=== PATIENT | male | born 1955 | race Caucasian/White ===

== ENCOUNTER → 2016-10-16 | Outpatient (CLI) | payer MEDICARE, OTHER | LOC: GMAM 10:35 | PROVIDERS: ATTEND Family Medicine | DX: E29.1 Testicular hypofunction (principal) ==

== ENCOUNTER → 2017-05-04 | Outpatient (CLI) | payer MEDICARE, OTHER | LOC: GMAM 10:36 | PROVIDERS: ATTEND Family Medicine | DX: Z12.5 Encounter for screening for malignant neoplasm of prostate (principal); E29.1 Testicular hypofunction | CPT/HCPCS: 84403; G0103 ==

== ENCOUNTER → 2018-06-08 | Outpatient (CLI) | payer MEDICARE, OTHER | LOC: GMAM 10:40 | PROVIDERS: ATTEND Family Medicine | DX: Z12.5 Encounter for screening for malignant neoplasm of prostate (principal) ==

== ENCOUNTER → 2018-07-29 | Outpatient (CLI) | payer MEDICARE, OTHER ==
--- NOTE | 2018-08-01 09:35 | CT ---
Procedure: CT LUNG SCREENING Exam Date: 07/29/2018. Ordering Provider: Yordan Dowling Clinical Indication: PERSONAL HISTORY OF TOBACCO DEPENDENCY This patient meets eligibility criteria for low-dose CT lung cancer screening. Comparison: Chest CT scan without contrast 03/02/2016. Technique: Using a multislice scanner, sequential helical axial imaging was obtained in the thorax, 2.5 mm thickness, 2.5 mm separation, from the level of the thoracic inlet through the lung bases without IV contrast. A low dose protocol was utilized for BMI less than 30: BMI: 26.8. CTDI: 1.76 mGy. 120. kVp. 45 mA. 73.26 mGy centimeters. 2D sagittal and coronal reconstructed images, 6.0 mm thickness, were obtained. This exam was performed according to our departmental dose optimization program which includes use of automated exposure control, adjustment of the mA and/or kV according to patient size and/or use of iterative reconstruction technique. Nodule measurements under 10 mm are given as mean value of 3 axes diameters. FINDINGS: Lungs and large airways: Minimal prominence of bilateral parenchymal blebs predominantly in the upper lung luz. 4 mm semisolid nodule in the apex of the superior segment of the left lower lobe lateral subpleural on axial series 2, image 66. This was not seen on the prior study. A solid nodule with partially indistinct borders but almost triangular in shape is adjacent to the anterior left horizontal fissure in the posterior lingula and may be also associated with the lingular fissure of the upper lobe, on image [id number]. This was not seen on the prior study. Pleural parenchymal scarring in the base of the lingula. Pleura and space: Bilateral focal pleural thickening and also pleural thickening abutting the posterior left lower lobe. No effusion bilaterally or pneumothorax. Mediastinum and regino: evaluation limited by low dose technique and lack of IV contrast. Short axis lymph nodes less than 1 cm diameter in the mediastinum. No large soft tissue masses. Heart and great vessels: Atherosclerotic calcifications aortic arch and descending thoracic aorta. Chest wall, lower neck, axillae: Evaluation also limited by same factors as described above. No significant findings. Upper abdomen: Negative. Osseous structures: Evaluation limited by low dose MIP technique. Minimal arthrosis in the left glenohumeral joint. Minimal arthrosis in the sternoclavicular joints. No lytic or blastic lesions. IMPRESSION: 1. New 4 mm semisolid nodule in the apex of the superior segment of the left lower lobe. New 6 mm solid nodule in the inferior left upper lobe, possibly associated with the left major fissure and the lingular fissure. Not seen on prior studies which may be due to technique. Minimal emphysematous changes in the upper lobes. [facility] Best Practice recommendations:. Please see below for Lung RADS category and FOLLOW-UP.* *Lung RADS category CATEGORY 3 - Probably benign (1-2% malignancy probability), short term follow-up suggested. NODULES: Solid nodule(s) 6mm to less than 8mm at baseline, or new 4mm to under 6mm solid nodule. Part solid nodule total diameter 6mm to less than 8mm with solid component less than 6mm, or new less than 6mm total diameter nodule] [ground glass nodule(s) 20mm or greater. FOLLOW-UP: Please return for a Low Dose Chest CT in 6 months for re-evaluation. Electronically signed by: Alfonzo Qureshi MD 08/01/2018 9:32 AM CDT
== END ==
LOC: CT 10:00
PROVIDERS: ATTEND Family Medicine
DX: Z87.891 Personal history of nicotine dependence (principal); R91.8 Other nonspecific abnormal finding of lung field

== ENCOUNTER → 2019-01-18 | Outpatient (CLI) | payer MEDICARE, OTHER ==
--- NOTE | 2019-01-18 15:39 | CT ---
EXAM DESCRIPTION: Chest w/o Contrast : Computed Tomography. CLINICAL HISTORY: 64 years Male LUNG NODULE follow-up 6 months for lung RADS category 3 on prior screening examination. COMPARISON: Low-dose CT lung cancer screening 07/29/2018. Technique: Using a multislice scanner, sequential helical axial imaging was obtained in the thorax, 2.5 mm thickness, 2.5 mm separation, from the level of the thoracic inlet through the lung bases without IV contrast. A low dose protocol was utilized for BMI less than 30: BMI: 26.7. CTDI: 1.77 mGy. 120. kVp. 45 mA. DLP 74.2 mGy-centimeters. 2D sagittal and coronal reconstructed images, 6.0 mm thickness, were obtained. This exam was performed according to our departmental dose optimization program which includes use of automated exposure control, adjustment of the mA and/or kV according to patient size and/or use of iterative reconstruction technique. Nodule measurements under 10 mm are given as mean value of 3 axes diameters. FINDINGS: Lungs and large airways: Subpleural semisolid nodule in the lateral apex of the superior segment of the left lower lobe has decreased in size now triangular-shaped with diameter 3.8 mm, on image 2/67. Nodule previously seen in the inferior lingula abutting the mid left major fissure is no longer visible. Pleural parenchymal scarring in the inferior lingula, stable. No new abnormal nodules or masses. No focal infiltrates. Pleura and space: Minimal bilateral pleural thickening stable. Mediastinum and regino: evaluation limited by low dose technique and lack of IV contrast. Small lymph nodes are stable. Heart and great vessels: Atherosclerotic calcification brachiocephalic vessels, aortic arch. Chest wall, lower neck, axillae: Evaluation also limited by same factors as described above. Artifact partially obscuring the right anterior chest wall, back, and right lateral chest wall from the right upper extremity position during the scan. Upper abdomen: Evaluation limited by low-dose technique. Negative Osseous structures: Evaluation limited by low dose MIP technique. Radiolucency in the lateral left seventh rib may be artifact, stable since the prior study. Minimal arthrosis in the bilateral SI joints. Early spondylosis of the thoracic spine. IMPRESSION: 1. Minimal emphysematous changes in the upper lobes. Subpleural nodule or focal pleural thickening in the apex of the superior segment of the left lower lobe stable or slightly smaller since the prior study. Nodule in the lingula abutting the mid left major fissure no longer present.. [facility] Best Practice Recommendations: please see below for Lung RADS category and FOLLOW-UP.* *Lung RADS category CATEGORY 2- Nodules with a very low likelihood (less than 1%) of becoming a clinically active cancer due to size or lack of growth. Nodules: Perifissural nodule(s) < 10 mm. (526mm3). Solid or part solid nodule(s) less than 6mm (113.1 mm3), new solid nodule less than 4mm (33.5 mm3). Ground glass nodule(s) less than 30mm (81386.2 mm3) or unchanged or slow growing ground glass nodule 30mm or greater. Cat 3 or 4 nodule unchanged for 3 or more months. FOLLOW-UP: Continue annual screening with a Low Dose Chest CT in 12 months for re-evaluation. Electronically signed by: Alfonzo Qureshi MD 01/18/2019 3:38 PM CDT
== END ==
LOC: CT 08:16
PROVIDERS: ATTEND Family Medicine
DX: Z87.891 Personal history of nicotine dependence (principal); R91.1 Solitary pulmonary nodule; J43.9 Emphysema, unspecified

== ENCOUNTER → 2019-05-04 | Outpatient (CLI) | payer MEDICARE, OTHER ==
--- NOTE | 2019-05-04 13:56 | RAD ---
EXAM DESCRIPTION: Shoulder,Left 2 or More Views CLINICAL HISTORY: 64 years Male, PAIN IN LEFT SHOULDER COMPARISON: None available. FINDINGS: The visualized bones are well-mineralized.No acute fracture or dislocation. Mild to moderate acromioclavicular joint osteoarthritis. The soft tissues appear grossly unremarkable. IMPRESSION: Mild to moderate acromioclavicular joint osteoarthritis. Electronically signed by: Dasha Lopez MD 05/04/2019 1:54 PM [facility]
== END ==
LOC: RAD 07:45
PROVIDERS: ATTEND Orthopaedic Surgery
DX: M19.012 Primary osteoarthritis, left shoulder (principal)

== ENCOUNTER → 2019-05-10 | Outpatient (CLI) | payer MEDICARE, OTHER ==
--- NOTE | 2019-05-10 13:44 | MRI ---
Study: MRI of the Left Shoulder. Indication: ROTATOR CUFF SYNDROME Technique: Multiplanar, multi sequence MRI of the left shoulder was obtained without intravenous contrast. Comparison: None Findings: Moderate to severe hypertrophic AC joint osteoarthritis. Type I acromion. Trace subacromial/subdeltoid bursal fluid. Supraspinatus and infraspinatus tendinosis with scattered bursal surface fraying and interstitial fissuring of both tendons. No full-thickness tear. Subscapularis tendinosis with scattered mild interstitial fissuring. Teres minor tendon intact. Rotator cuff musculature normal without atrophy, fatty infiltration, or intramuscular edema. Intracapsular long head biceps tendinosis. Circumferential labral tearing truncation with millimetric paralabral cyst formation posterior and posterior inferiorly. Minimal glenohumeral joint osteoarthritis a small joint effusion. Acute fracture. Thickening and edema inferior glenohumeral ligament which can be seen with adhesive capsulitis. Impression: Supraspinatus and infraspinatus tendinosis and bursal surface fraying with interstitial fissuring of both tendons. Subscapularis tendinosis with scattered mild interstitial fissuring. Intracapsular long head biceps tendinosis. Circumferential labral tearing and truncation Minimal glenohumeral joint osteoarthritis with a small joint effusion. Adhesive capsulitis. Moderate to severe hypertrophic AC joint osteoarthritis. Electronically signed by: Marco A Coker MD 05/10/2019 1:42 PM [facility]
== END ==
LOC: MRI 08:00
PROVIDERS: ATTEND Orthopaedic Surgery
DX: M75.102 Unspecified rotator cuff tear or rupture of left shoulder, not specified as traumatic (principal); M75.92 Shoulder lesion, unspecified, left shoulder; M75.22 Bicipital tendinitis, left shoulder; M19.012 Primary osteoarthritis, left shoulder; M75.02 Adhesive capsulitis of left shoulder; M25.412 Effusion, left shoulder

== ENCOUNTER → 2019-05-23 | Outpatient (CLI) | payer MEDICARE, OTHER | LOC: LAB.O 13:41 | PROVIDERS: ATTEND Orthopaedic Surgery | DX: Z01.818 Encounter for other preprocedural examination (principal) ==

== ENCOUNTER 2019-06-07 05:23 | Day surgery (SDC) | payer MEDICARE, OTHER ==
[2019-06-07] MEDS ORDERED: SODIUM CHL 0.9% 100ML MINI-BAG 100 ML IVPB ONE (05:49)
[2019-06-07] MEDS ORDERED: LACTATED RINGERS 1,000 ML ONE (05:50)
[2019-06-07] MEDS ORDERED: ceFAZolin SODIUM 1 GM VIAL ONE ×2 (05:52)
[2019-06-07] MEDS ORDERED: SODIUM CHLORIDE 0.9% 50 ML VIAL ONE (07:00)
[2019-06-07] MEDS ORDERED: PROPOFOL 200 MG/20 ML VIAL IV ONE (07:00)
[2019-06-07] MEDS ORDERED: DEXAMETHASONE INJ 10 MG/ML VIAL ONE (07:00)
[2019-06-07] MEDS ORDERED: ePHEDrine SULF 50 MG/ML ONE (07:00)
[2019-06-07] MEDS ORDERED: LIDOCAINE 1% 10 ML VIAL INJ ONE (07:00)
[2019-06-07] MEDS ORDERED: raNITIdine HCL INJ 25 MG/ML VIAL ONE (07:00)
[2019-06-07] MEDS ORDERED: MAGNESIUM SULFATE INJ 1 GM/2 ML VIAL ONE (07:00)
[2019-06-07] MEDS ORDERED: BUPIVACAINE LIPOSOME 13.3 MG/ML VIAL INJ ONE (10:39)
[2019-06-07] MEDS ORDERED: BUPIVACAINE 0.5% 30 ML VIAL INJ ONE (10:39)
[2019-06-07] MEDS ORDERED: ROCURONIUM BROMIDE 10 MG/ML VIAL ONE (10:45)
[2019-06-07] MEDS ORDERED: KETAMINE HCL 100 MG/ML VIAL ONE (10:45)
[2019-06-07] MEDS ORDERED: fentaNYL CITRATE INJ 50 MCG/ML 2 ML AMP ONE (10:45)
[2019-06-07] MEDS ORDERED: MIDAZOLAM INJ 5 MG/5 ML VIAL ONE (10:45)
[2019-06-07] MEDS: VANCOMYCIN HCL INJ 1,000 MG VIAL IVPB ONE ×2 (11:53→12:09)
[2019-06-07] MEDS: ceFAZolin SODIUM 1 GM VIAL ONE ×2 (11:53→12:09)
[2019-06-07] MEDS ORDERED: SUGAMMADEX SODIUM 200 MG/2 ML VIAL IV ONE (12:09)
[2019-06-07] MEDS ORDERED: ELECTROLYTE-A 1,000 ML IVS ONE (12:35)
[2019-06-07] MEDS ORDERED: LEVALBUTEROL NEBS 1.25 MG/3 ML VIAL NEB ONE (12:52)
[2019-06-07] MEDS: MORPHINE SULFATE INJ 10 MG/ML VIAL ONE ×2 (13:40→13:57)
[2019-06-07] MEDS ORDERED: HYDROcodone 5MG/APAP 325MG 1 EA TAB ONE (14:30)
[2019-06-07 15:22] VITALS: BP 156/87; TEMP 98.2; O2SAT 96
--- NOTE | 2019-06-29 11:59 | OP ---
DATE OF PROCEDURE: 06/07/19 PREOPERATIVE DIAGNOSIS: 1. Impingement of the shoulder. POSTOPERATIVE DIAGNOSIS: 1. Impingement of the shoulder. PROCEDURE: 1. Subacromial decompression. 2. Distal clavicle resection. SURGEON: Cesar Srinivasan MD. LAYOUT DESIGNER: Alfonzo Bentley CST, SA-C. ANESTHESIA: General anesthesia. COMPLICATIONS: None. FINDINGS: Impingement of the shoulder. INDICATION: Mr. German has a history of severe pain in the shoulder. He has had a full evaluation and we discussed options. He has had conservative measures, however, has failed to gain relief. After discussing the risks, benefits and alternatives to operative therapy, the patient has given informed consent for subacromial decompression and distal clavicle resection. PROCEDURE: The patient was brought to the Operating Room and placed in the supine position. General anesthesia was induced and the patient was transitioned into the beach chair position. After ensuring all bony prominences were well padded, the arm and shoulder were sterilely prepped and draped. Following prepping and draping, an incision was made at the lateral border of the acromion. A split was made between the anterior and middle heads of the deltoid. Following that, a complete bursectomy was performed. An acromioplasty was performed. The entirety of the rotator cuff was examined. The arm was taken through a range of motion. The cuff appeared to be intact without any significant abnormalities. Attention was then focused on the acromioclavicular joint. Full thickness periosteal flaps were developed after identification of the acromioclavicular joint. Subsequent to that, the distal 1 cm of the clavicle was resected. Care was taken to remove all bony debris. After removal of bony debris, the wound was very thoroughly irrigated and the periosteum was reapproximated. The split in the deltoid was reapproximated. The skin was closed with a combination of running and interrupted subcuticular stitches. Sterile dressings were placed. The patient was placed in a sling, awoken from anesthesia and taken to Recovery. POSTOPERATIVE PLAN: He will remain in his sling and has been encouraged to do range of motion of the wrist and digits. He will followup with us in two days. We will begin a physical therapy regimen the following week. #[id number] [facility]
== END 2019-06-07 15:20 | disposition home or self-care (01) ==
LOC: AMB 05:23
PROVIDERS: ATTEND Orthopaedic Surgery
DX: M75.42 Impingement syndrome of left shoulder (principal); I10 Essential (primary) hypertension; F41.9 Anxiety disorder, unspecified; F32.9 Major depressive disorder, single episode, unspecified; K21.9 Gastro-esophageal reflux disease without esophagitis; M10.9 Gout, unspecified; Z87.891 Personal history of nicotine dependence; Z88.5 Allergy status to narcotic agent; Z79.899 Other long term (current) drug therapy
CPT/HCPCS: 00450; 23120; 80307; A4216; J0690; J1100; J2250; J2270; J2780; J3010; J3370; J3475; J3490; J7050; J7120; J7614

== ENCOUNTER → 2019-10-23 | Outpatient (CLI) | payer MEDICARE | LOC: GMAM 10:40 | PROVIDERS: ATTEND Family Medicine | DX: Z12.5 Encounter for screening for malignant neoplasm of prostate (principal); I10 Essential (primary) hypertension ==

== ENCOUNTER → 2020-01-22 | Outpatient (CLI) | payer MEDICARE, OTHER ==
--- NOTE | 2020-01-22 10:10 | CT ---
Procedure: CT LUNG SCREENING Exam Date: January 22, 2020. Ordering Provider: Yordan Dowling Clinical Indication: PERSONAL HISTORY OF TOBACCO DEPENDENCE . Current cigarette smoker. 45 pack years. This patient meets eligibility criteria for low-dose CT lung cancer screening. Comparison: Low-dose chest CT lung cancer screening. July 2018 and January 2019. Technique: Using a multislice scanner, sequential helical axial imaging was obtained in the thorax, 2.5 mm thickness, 2.5 mm separation, from the level of the thoracic inlet through the lung bases without IV contrast. A low dose protocol was utilized for BMI less than 30: BMI: 28. CTDI: 1.76 mGy. 120. kVp. 45 mA. DLP 74 mGy-cm. 2D sagittal and coronal reconstructed images, 6.0 mm thickness, were obtained. This exam was performed according to our departmental dose optimization program which includes use of automated exposure control, adjustment of the mA and/or kV according to patient size and/or use of iterative reconstruction technique. Nodule measurements under 10 mm are given as mean value of 3 axes diameters. FINDINGS: Lungs and large airways: Small triangular-shaped density or semisolid 3.5 mm nodule in the lateral subpleural apex of the left lower lobe on axial series 2, image 64 is stable. No new nodules. No masses. Bilateral pleural-parenchymal scarring is stable. Pleura and space: Minimal pleural thickening. No calcifications or acute process. Stable. Mediastinum and regino: evaluation limited by low dose technique and lack of IV contrast. Small lymph nodes with no dominant soft tissue mass. No interval change. Heart and great vessels: Minimal calcification of the aortic arch stable. Chest wall, lower neck, axillae: Evaluation also limited by same factors as described above. Negative. Upper abdomen: Evaluation limited by low-dose technique. No free air or free fluid in the included peritoneal space. Partial visualization of the gallbladder. No interval change. Osseous structures: Evaluation limited by low dose MIP technique. Bilateral arthrosis shoulder clavicle and sternum. Stable. IMPRESSION: 1. Stable chronic densities. No abnormal nodule and no mass. No focal or new infiltrate.. [facility] Best Practice Recommendations: please see below for Lung RADS category and FOLLOW-UP.* *Lung RADS category Category 1 - No nodule or definitely benign nodules (probability of malignancy less than 1%). Follow-up: Continue annual screening with Low Dose Chest CT in 12 months. Electronically signed by: Alfonzo Qureshi MD 01/22/2020 10:09 AM CDT
== END ==
LOC: CT 07:47
PROVIDERS: ATTEND Family Medicine
DX: Z12.2 Encounter for screening for malignant neoplasm of respiratory organs (principal); R91.8 Other nonspecific abnormal finding of lung field; Z87.891 Personal history of nicotine dependence

== ENCOUNTER → 2020-05-14 | Outpatient (CLI) | payer MEDICARE | LOC: GMAM 16:43 | PROVIDERS: ATTEND Family Medicine | DX: M25.59 Pain in other specified joint (principal) ==

== ENCOUNTER → 2020-06-03 | Outpatient (CLI) | payer MEDICARE, OTHER ==
--- NOTE | 2020-06-04 15:31 | US ---
EXAM DESCRIPTION: Liver: ULTRASOUND. CLINICAL HISTORY: ABN RESULTS OF LIVER FUNCTION STUDIES COMPARISON: None. TECHNIQUE: Transabdominal scannin-dimensional and Doppler modes.. Patient nonfasting. FINDINGS: Gallbladder: Gallbladder contracted. Small echogenic objects on the wall not moving with patient changing position. Consistent with polyps. Multiple echogenic stones with shadowing also visualized. Largest stone measures 3.6 mm. No fluid around the gallbladder. Wall thickened 4 mm, possibly due to contraction. Abdominal wall Non-tender with transducer pressure. Common bile duct: caliber 5.8 mm within normal limits. Liver: Heterogeneously increased echogenicity; contour liver capsule smooth where seen. No fluid around the liver. Intrahepatic biliary ducts normal caliber. Doppler hepatopedal flow portal vein. 9.2 mm Long axis right lobe 16.6 cm Pancreas: normal size and echogenicity. Limited images of the tail. Duct not seen. Right kidney: long axis measures 11.5 cm. Volume 162.8 ml. Cortical echogenicity is normal. Cortical thickness normal no echogenic stones; no hydronephrosis. Aorta proximal: Normal-caliber 1.4 cm. IMPRESSION: 1. Gallbladder contracted with wall thickening possibly secondary to contraction. Multiple stones and polyps. No surrounding fluid. Abdominal wall nontender with transducer pressure. Common bile duct normal caliber. No ascites. 2. Fatty liver. Physiologic ducts and vascularity. Mildly enlarged. Smooth capsule with no ascites. Pancreas unremarkable with limited visualization of the tail and duct not seen. 3. Right kidney unremarkable. Normal caliber of the proximal abdominal aorta. Electronically signed by: Alfonzo Qureshi MD 06/04/2020 3:29 PM [employer]
== END ==
LOC: US 09:50
PROVIDERS: ATTEND Family Medicine
DX: R94.5 Abnormal results of liver function studies (principal); K80.20 Calculus of gallbladder without cholecystitis without obstruction; K76.0 Fatty (change of) liver, not elsewhere classified